=== PATIENT | female | born 1970 | race Caucasian/White ===

== ENCOUNTER 2017-10-08 15:59 | Inpatient (IN) | payer OTHER ==
[~2017-10-08] VITALS: Ht 160 cm; Wt 91.0 kg
[2017-10-08 17:11] VITALS: BP 133/76; PULSE 92; TEMP 98.1
[2017-10-08 20:34] VITALS: BP 134/63; PULSE 85; TEMP 98.7
[2017-10-08 22:41] VITALS: BP 101/55; PULSE 116; TEMP 102.7
[2017-10-08 22:55] VITALS: TEMP 102.7
[2017-10-09] VITALS (199 sets, daily range): BP systolic 106–133; BP diastolic 57–80; PULSE 61–111; TEMP 97.2–100.6; O2SAT 88–99
[2017-10-09 06:16] LABS: HEMATOCRIT 42.8 % (37.0-47.0); MEAN CELL VOLUME 90 fl (80.0-100.0); MEAN CORPUSCULAR HEMOGLOBIN 29 pg (27.0-31.0); MEAN CORPUSCULAR HGB CONC 33 g/dl (33.0-37.0); MEAN PLATELET VOLUME 9.6 fl (7.4-10.4); PLATELET COUNT 268 K/mm3 (130-400); RED BLOOD COUNT 4.78 M/mm3 (4.10-5.30); REDCELL DISTRIBUTION WIDTH-CV 13.3 % (11.5-14.5)
[2017-10-09 06:38] LABS: CALCIUM 8.5 mg/dL (8.4-10.2); CREATININE, serum 0.68 mg/dL (0.52-1.25)
[2017-10-10 04:34] VITALS: BP 123/70; PULSE 81; TEMP 98.4
[2017-10-10 08:01] VITALS: BP 145/79; PULSE 68; TEMP 98.1
[2017-10-10] MEDS ORDERED: BACTRIM DS 8001 TAB PO (11:25)
== END 2017-10-10 12:15 | disposition home or self-care (01) | DRG 872 ==
LOC: EDSTATUS 16:04 → SURG 16:05 → ICU 16:55 → SURG 16:55 → ICU 16:56 → SURG 10-09 13:00 → ICU 10-09 13:00 → SURG 10-09 13:01
PROVIDERS: Urology
PROC: 0T778DZ Dilation of Left Ureter with Intraluminal Device, Via Natural or Artificial Opening Endoscopic (ICD-10-PCS; principal; 2017-10-09)
PROC: BT1F1ZZ Fluoroscopy of Left Kidney, Ureter and Bladder using Low Osmolar Contrast (ICD-10-PCS; 2017-10-09)
DX: A41.9 Sepsis, unspecified organism (principal); N20.2 Calculus of kidney with calculus of ureter; N39.0 Urinary tract infection, site not specified
CPT/HCPCS: A4314; C1769; C2617; J1100; J1885; J1956; J2270; J2405; J2543; J2704; J3010; J7030; Q9967

== ENCOUNTER 2017-10-30 05:34 | Day surgery (SDC) | payer OTHER ==
[~2017-10-30] VITALS: Ht 160 cm; Wt 82.4 kg
[~2017-10-30 05:34] MED LIST: BACTRIM DS 8001 TAB PO
[2017-10-30 06:18] VITALS: BP 137/88; PULSE 76; TEMP 98.2
[2017-10-30 09:55] VITALS: BP 128/80; PULSE 78; TEMP 97.9
[2017-10-30 10:10] VITALS: BP 123/77; PULSE 76
[2017-10-30] MEDS ORDERED: NORCO 325 MG-51 TAB PO (10:10)
[2017-10-30] MEDS ORDERED: SENOKOT S 50 MG1 TAB PO (10:11)
[2017-10-30] MEDS ORDERED: PYRIDIUM 100MG100 MG PO (10:12)
[2017-10-30 10:25] VITALS: BP 126/79; PULSE 75
[2017-10-30 10:40] VITALS: BP 141/84; PULSE 74
[2017-10-30 11:02] VITALS: BP 128/80; PULSE 79; TEMP 97.4
== END 2017-10-30 10:50 | disposition home or self-care (01) ==
LOC: SDCO 05:34
DX: N20.2 Calculus of kidney with calculus of ureter (principal); E11.9 Type 2 diabetes mellitus without complications; I10 Essential (primary) hypertension; Z87.440 Personal history of urinary (tract) infections; Z83.3 Family history of diabetes mellitus; Z82.49 Family history of ischemic heart disease and other diseases of the circulatory system
CPT/HCPCS: C1769; C2617; J0690; J1100; J1885; J2405; J2704; J3010; J7030